=== PATIENT | female | born 1975 | race Caucasian/White ===

== ENCOUNTER 2016-10-17 10:57 | Emergency (ER) | payer SELFPAY | END 2016-10-17 12:13 | disposition home or self-care (01) | LOC: D.ER 10:57 | DX: M54.10 Radiculopathy, site unspecified (principal); M54.5 Low back pain; M51.36 Other intervertebral disc degeneration, lumbar region; F32.9 Major depressive disorder, single episode, unspecified; M79.7 Fibromyalgia ==

== ENCOUNTER 2017-08-20 18:59 | Emergency (ER) | payer MEDICAID | END 2017-08-20 21:45 | disposition home or self-care (01) | LOC: D.ER 18:59 | DX: L03.317 Cellulitis of buttock (principal); Z20.89 Contact with and (suspected) exposure to other communicable diseases; F17.200 Nicotine dependence, unspecified, uncomplicated ==

== ENCOUNTER 2017-10-14 12:45 | Observation (INO) | payer MEDICAID ==
[~2017-10-14] VITALS: Ht 165.1 cm; Wt 48.0 kg
--- NOTE | ~2017-10-14 | HEMODYNAMI ---
PATIENT:SOHAIL TRIMBLE MEDICAL RECORD: [id number] : 73 [id number] ADMISSION DATE: 10/14/17 Generatedon:10/15/201716:05 Patient name: SOHAIL TRIMBLE Patient #: [id number] SSN: : 1975 Date of study: 10/15/2017 Page: Of Hemodynamic Procedure Report Patient Data Patient Demographics Procedure consent was obtained First Name: SOHAIL Gender: Female Last Name: ATILIO : 1975 Middle Initial: M Age: 42 year(s) Patient #: [id number] Race: Unknown Additional ID: [id number] Contact details Address: [address] [place] [address] State: [place] City: [place] Zip code: [address] Past Medical History Allergies Allergen Reaction Date Comments Reported Other allergy 10/15/2017 Bigg CABRERA Admission Admission Data Admission Date: 10/14/2017 Admission Time: 18:59 Room #: D.2120 Height (in.): 64.96 BSA: 1.5 (m2) Height (cm.): 165 BMI: 17.26 (kg/m2) Weight (lbs.): 103.62 Weight (kg.): 47 Lab Results Lab Result Date: 10/15/2017 Lab Result Time: 0:00 Biochemistry Name Units Result Min Max BUN mg/dl 7 --(*---)-- 7 18 Creatinine mg/dl 0.9 --(-*--)-- 0.6 1.3 CBC Name Units Result Min Max Hemoglobin g/dl 13.8 --(*---)-- 13.5 17.5 Procedure Procedure Types Cath Procedure Diagnostic Procedure [facility] w/Coronaries Sedation Charges Moderate Sedation up to 15 minutes Procedure Description Procedure Date Procedure Date: 10/15/2017 Procedure Start Time: 15:45 Procedure End Time: 16:03 Procedure Staff Name Function Praful Deluna MD Performing Physician Jabari Feliciano RN Nurse Berkley Jeter RT Scrub [facility] RT Monitor Procedure Data Cath Procedure Fluoroscopy Diagnostic fluoroscopy Total fluoroscopy Time: 2.2 time: 2.2 min min Diagnostic fluoroscopy Total fluoroscopy dose: 431 dose: 431 mGy mGy Contrast Material Contrast Material Type Amount (ml) Isovue 300 51 Entry Location Entry Primary Successful Side Size Upsize Upsize Entry Closure Solorzano ccessful Closure Location (Fr) 1 (Fr) 2 (Fr) Remarks Device Remarks Radial Right 6 Fr Manual artery Short Compression Estimated blood loss: 5 ml Diagnostic catheters Device Type Used For End Catheter Placement DIAGNOSTIC [place] 110cm 5 Procedure Fr catheter ([id number]) Procedure Complications No complications Procedure Medications Medication Administration Route Dosage Oxygen etCO2 Nasal cannula 2 l/min Heparin Flush Bag added to field 2 bags (1000units/500ml NS) 0.9% NaCl I.V. 100 ml/hr Radial Cocktail added to field 1 syringe (Verapomil 2mg/Nitro 400mcg/Heparin 1500units) Fentanyl I.V. 50 mcg Versed I.V. 1 mg Fentanyl I.V. 50 mcg Versed I.V. 1 mg Radial Cocktail I.A. 1 syringe (Verapomil 2mg/Nitro 400mcg/Heparin 1500units) Fentanyl I.V. 50 mcg Versed I.V. 1 mg Fentanyl I.V. 50 mcg Nitroglycerin IC/IA I.A. 200 mcg Versed I.V. 1 mg Hemodynamics Rest BSA: 1.5 (m2) HGB: 13.8 (g/dl) O2 Consumption: Estimated: 164.28 (ml/min) O2 Con sumption indexed: Estimated:109.52 (ml/min/m) Heart Rate: 94 (bpm) Pressure Samples Time Site Value (mmHg) Purpose Heart Use Rate(bpm) 15:51 LV 113/10,17 EDP 92 Gradients Valve Time Site Site Mean SEP/DFP Peak To Heart Use 1 2 (mmHg) (sec/min) Peak Rate (mmHg) (bpm) Aortic 15:52 LV AO 90 Snapshots Pre Cath Intra NCS Post Cath Vital Signs Time Heart Resp SPO2 etCO2 NIBP Rhythm Pain Sedation Rate (ipm) (%) (mmHg) (mmHg) Status Level (bpm) 15:33:46 91 17 91 0 117/71(97) NSR 0 (11) 10(A) , No pain 15:38:06 85 16 98 26.7 117/69(90) NSR 0 (11) 10(A) , No pain 15:42:28 87 16 97 30.4 105/64(83) NSR 0 (11) 10(A) , No pain 15:46:52 85 16 99 23.7 121/73(94) NSR 0 (11) 9(A) , No pain 15:51:17 90 16 95 31.9 120/61(84) NSR 0 (11) 9(A) , No pain 15:55:39 92 14 92 35.6 112/61(84) NSR 0 (11) 9(A) , No pain 16:00:40 86 14 96 36.4 117/69(89) NSR 0 (11) 9(A) , No pain Medications Time Medication Route Dose Verified Delivered Reason Notes Effectiveness by by 15:34:26 Oxygen etCO2 2 l/min Praful Jabari Per Nasal Regi Feliciano RN physician cannula 15:34:34 Heparin Flush added 2 bags Praful Jabari used for Bag to Regi Feliciano RN procedure (1000units/500ml field HUERTAS NS) 15:34:42 0.9% NaCl I.V. 100 Praful Jabari Per ml/hr Regi Feliciano RN physician 15:34:52 Radial Cocktail added 1 Praful Jabari used for (Verapomil to syringe Regi Feliciano RN procedure 2mg/Pedrito holder MD 400mcg/Heparin 1500units) 15:38:55 Fentanyl I.V. 50 mcg Praful Jabari for sedation Regi Feliciano RN, MD 15:39:02 Versed I.V. 1 mg Praful Jabari for sedation Regi Feliciano RN, MD 15:43:17 Fentanyl I.V. 50 mcg Praful Jabari for sedation Regi Feliciano RN, MD 15:43:20 Versed I.V. 1 mg Praful Jabari for sedation Regi Feliciano RN, MD 15:46:37 Radial Cocktail I.A. 1 Praful Praful for (Verapomil syringe Regi Deluna MD vasodilation 2mg/Pedrito HUERTAS 400mcg/Heparin 1500units) 15:46:43 Fentanyl I.V. 50 mcg Praful Jabari for sedation Regi Feliciano RN, MD 15:50:55 Versed I.V. 1 mg Praful Jabari for sedation Regi Feliciano RN, MD 15:53:45 Fentanyl I.V. 50 mcg Praful Jabari for sedation Regi Feliciano RN, MD 16:01:09 Nitroglycerin I.A. 200 mcg Praful Praful for IC/IA Regi goodwin MD 16:01:16 Versed I.V. 1 mg Praful Barboza for sedation Regi Feliciano RN, MD Procedure Log Time Note 15:10:18 Jabari Feliciano RN sent for patient. Start room use. 15:24:29 Patient Height : 64.96 inches 15:24:34 Patient Weight : 103.62 lbs 15::30 Lab Result : BUN 7 mg/dl 15::30 Lab Result : Creatinine 0.9 mg/dl 15::30 Lab Result : Hemoglobin 13.8 g/dl 15:26:15 Diagnostic Cath status Elective 15::28 Time tracking: Regular hours 15:26:36 Plan of Care:Hemodynamics will remain stable., Cardiac rhythm will remain stable., Comfort level will be maintained., Respiratory function will remain adequate., Patient/ family verbilizes understanding of procedure., Procedure tolerated without complication., Recovers from procedure without complications.. 15:26:50 Patient received from Med II to CCL 1 Alert and oriented. Tansferred to table in Supine position. 15:27:00 Warm blankets applied, and lisa hugger turned on for patient comfort. 15:27:01 Correct patient and procedure confirmed by team. 15:27:03 Signed procedure consent form obtained from patient. 15:27:04 ECG and BP/O2 sat monitors applied to patient. 15:27:11 Pre-procedure instructions explained to patient. 15:27:15 Family in patients room. 15:27:18 Patient NPO since Midnight. 15:27:41 Patient allergic to Other allergyPCN, Codeine 15:27:47 Is the patient allergic to Iodine/contrast media? No. 15:27:50 Was the patient premedicated? Yes 15:30:03 Is patient on blood thinner?Yes 15:30:09 ACC The patient was administered the following blood thiners within the last 24 hours: ACCPlavix 15:30:13 Patient diabetic? No. 15:30:16 ----Pre-sedation anethsthesia assessment.---- 15:30:22 Previous problem with sedation/anesthesia? No ? 15:30:26 Snore? Yes 15:30:35 Sleep apnea? No 15:30:45 Deviated septum? No 15:30:47 Opens mouth fully? Yes 15:30:49 Sticks out tongue? Yes 15:31:01 Airway obstruction? No ? 15:31:13 Dentures? Yes OUT 15:32:22 Modified Dylan's test Radial < 7 seconds 15:32:26 Patient pain scale 0/10 ?. 15:32:44 IV patent on arrival in left forearm with 0.9% NaCl at [facility]. 15:33:02 Lab results completed and on chart. 15:33:15 Vital chart was started 15:33:16 Baseline sample Acquired. 15:33:20 Rhythm: sinus rhythm 15:33:22 Full Disclosure recording started 15:34:20 H&P Date Dictated: 10/14/2017 Within 30 days and on chart.. 15:34:26 Oxygen 2 l/min etCO2 Nasal cannula was administered by Jabari Feliciano RN; Per physician; 15:34:34 Heparin Flush Bag (1000units/500ml NS) 2 bags added to field was administered by Jabari Feliciano RN; used for procedure; 15:34:39 Right Radial & Right Groin area was prepped with chlora-prep and draped in sterile fashion 15:34:40 Alarms reviewed by R. N. 15:34:41 Sharps counted by scrub and verified by R.N. 15:34:42 0.9% NaCl 100 ml/hr I.V. was administered by Jabari Feliciano RN; Per physician; 15:34:52 Radial Cocktail (Verapomil 2mg/Nitro 400mcg/Heparin 1500units) 1 syringe added to field was administered by Jabari Feliciano RN; used for procedure; 15:36:27 --------ALL STOP TIME OUT------ 15:36:28 Final Timeout: patient, procedure, and site verified with staff and physician. All members of the team are in agreement. 15:36:29 Right Radial & Right Groin site verified by team. 15:36:32 Physical assessment completed. ASA score P 2 - A patient with mild systemic disease as per Praful Deluna MD. 15:36:36 Sedation plan: IV Moderate Sedation Medication:Versed, Fentanyl 15:38:38 Use device set Radial Dx or PCI 15:38:39 ACIST Syringe (80508) opened to sterile field. 15:38:41 ACIST Hand Control (46382) opened to sterile field. 15:38:41 ACIST Manifold (37252) opened to sterile field. 15:38:42 Tegaderm 4 x 4 (1626W) opened to sterile field. 15:38:48 Bag Decanter (2002S) opened to sterile field. 15:38:49 Medline Cath Pack ([id number]) opened to sterile field. 15:38:49 SHEATH 6FR Slender ([id number]) opened to sterile field. 15:38:50 DIAGNOSTIC WIRE .035 260cm J wire (685530) opened to sterile field. 15:38:52 MBrace Wrist Support ([id number]) opened to sterile field. 15:38:55 Fentanyl 50 mcg I.V. was administered by Jabari Feliciano RN; for sedation; 15:39:02 Versed 1 mg I.V. was administered by Jabari Feliciano RN; for sedation; 15:41:01 Zero performed for pressure channel P1 15:41:12 Zero performed for pressure channel P1 15:42:58 Procedure started. 15:43:17 Fentanyl 50 mcg I.V. was administered by Jabari Feliciano RN; for sedation; 15:43:20 Versed 1 mg I.V. was administered by Jabari Feliciano RN; for sedation; 15:45:08 Local anesthetic to right radial artery with Lidocaine 2% by Praful Deluna MD.INITIAL ACCESS ONLY 15:46:37 Radial Cocktail (Verapomil 2mg/Nitro 400mcg/Heparin 1500units) 1 syringe I.A. was administered by Praful Deluna MD; for vasodilation; 15:46:43 Fentanyl 50 mcg I.V. was administered by Jabari Feliciano RN; for sedation; 15:48:44 A 6 Fr Short sheath was inserted into the Right Radial artery 15:49:52 A DIAGNOSTIC [place] 110cm 5 Fr catheter ([id number]) was advanced over the wire and used for Procedure. 15:50:55 Versed 1 mg I.V. was administered by Jabari Feliciano RN; for sedation; 15::51 Injector settings: Ml/sec: 12, Volume: 8, 15::57 LV hemodynamics recorded. 15:51:58 LV gram done using ANN 15:52:23 EF : 65 % 15:52:43 RCA angiography performed. 15:53:45 Fentanyl 50 mcg I.V. was administered by Jabari Feliciano RN; for sedation; 15:54:02 LCA angiography performed. 15:57:01 Catheter removed. 15:57:06 TR BAND Standard ([id number]) opened to sterile field. 15:57:28 Procedure ended.(Physican Out) 15:57:54 Sheath removed intact; hemostasis achieved with Manual Compression to the Right Radial artery. 15:58:15 Fluoroscopy time 02.20 minutes. 15:58:19 Fluoroscopy dose: 431 mGy 15:58:19 Flurop Dose total: 431 15:58:22 Contrast amount:Isovue 300 51ml. 15:58:23 Sharps counted by scrub and verified by R.N. 16:01:09 Nitroglycerin IC/IA 200 mcg I.A. was administered by Praful Deluna MD; for vasodilation; 16:01:16 Versed 1 mg I.V. was administered by Jabari Feliciano RN; for sedation; 16:01:42 Post-procedure physical assessment completed. ASA score P 2 - A patient with mild systemic disease as per Praful Deluna MD. 16:01:44 Post procedure rhythm: unchanged. 16:01:46 Estimated blood loss: 5 ml 16:01:48 Post procedure instruction explained to patient.Patient verbalizes understanding. 16:01:49 Patient needs reinforcement of post procedure teaching. 16:02:20 Procedure type changed to Cath procedure, Diagnostic procedure, LHC, LHC w/Coronaries, Sedation Charges, Moderate Sedation up to 15 minutes 16:02:26 TR band inflated with 13cc of air. 16:03:29 Procedure and supply charges have been captured, reviewed, submitted and are correct. 16:03:32 Procedure Complication : No complications 16:03:34 Vital chart was stopped 16:03:35 See physician's report for complete and final results. 16:03:41 Report given to PCU. 16:03:44 Patient transfered to PCU with Bed. 16:03:45 Procedure ended. 16:03:45 Full Disclosure recording stopped 16:03:53 End room use (Document Last) Device Usage Item Name Manufacture Quantity Catalog Hospital Part Current Minima l Lot# / Number Charge Number Stock Stock Serial# Code ACIST Acist 1 97165 599321 [id number] [id number] 20 Syringe Medical (14475) Systems Inc ACIST Hand Acist 1 75889 874976 317924 261519 5 Control Medical (75150) Systems Inc ACIST Acist 1 22368 603402 853891 323271 5 Manifold Medical (68045) Systems Inc Tegaderm 4 x 3M 1 1626W 496550 734583 029680 5 4 (1626W) Bag Decanter Microtek 1 2002S 767008 86194 149144 5 (2002S) Medical Inc. Medline Cath Cardinal 1 [id number] 490023 34435 098506 5 [employer] ([id number]) SHEATH 6FR Terumo 1 [id number] 810527 503249 468183 40 Slender ([id number]) DIAGNOSTIC St Miles 1 720654 147327 463601 508459 30 WIRE .035 260cm J wire (032702) MBrace Wrist Advanced 1 140-0250-00 202431 20844 567061 5 Support Vascular ([id number]) Dynamics DIAGNOSTIC Terumo 1 40-3763 276326 598047 996442 5 [place] 110cm 5 Fr catheter (634796) TR BAND Terumo 1 [id number] 075696 403192 619632 40 Standard ([id number]) Signature Audit [place] Stage Time Signature Unsigned Intra-Procedure 10/15/2017 Cherri Franco 4:05:08 PM RT(R) Signatures Monitor : Cherri Franco Signature : RT Date : Time : [place] [address] [facility] [place] [address]
[2017-10-14 13:36] LABS: BASOPHILS 0.3 % (0-2); EOSINOPHILS 1.3 % (0-7); HEMOGLOBIN 13.8 g/dL (12-16); IMMATURE GRANULOCYTES 0.2 % (0-5); LYMPHOCYTES 40.2 % (15-50); MCH 29.9 pg (26.0-34.0); MCHC 33.7 g/dL (31.0-37.0); MCV 88.9 fL (80.0-100.0); MEAN PLATELET VOLUME 10.5 fL (7.4-10.4); MONOCYTES 9.2 % (2-11); NEUTROPHILS 48.8 % (40-80); PLATELET COUNT 246 10x3/uL (130-400); RBC 4.61 10x6/uL (4.00-5.40); RDW 12.7 % (11.5-14.5); WBC 6.2 10x3/uL (4.8-10.8)
[2017-10-14 13:48] LABS: ALBUMIN 3.3 g/dL (3.4-5.0); ALKALINE PHOSPHATASE 62 U/L (46-116); ALT (SGPT) 13 U/L (10-68); BILIRUBIN - TOTAL 0.24 mg/dL (0.2-1.3); CALC OSMOLALITY 276 mosm/kg (275-300); CALCIUM 8.6 mg/dL (8.5-10.1); CARBON DIOXIDE 26.2 mmol/L (21.0-32.0); CHLORIDE - SERUM 106 mmol/L (98-107); CREATININE - SERUM 0.9 mg/dL (0.6-1.3); GLUCOSE 91 mg/dL (74-106); POTASSIUM - SERUM 3.9 mmol/L (3.5-5.1); PROTEIN - SERUM 7.8 g/dL (6.4-8.2); SODIUM 140 mmol/L (136-145); UREA NITROGEN 7 mg/dL (7-18); eGFR NON AFRICAN AMERICAN 72 mL/min (90-120)
[2017-10-14 14:00] LABS: CKMB 0.7 U/L (0.0-3.6); CREATINE KINASE 66 UL (21-215)
[2017-10-14 14:01] LABS: TROPONIN-I < 0.017 ng/mL (0.000-0.060)
[2017-10-15 00:24] VITALS: BP 148/80; Ht 165.1 cm; Wt 48.0 kg
[2017-10-15 04:00] VITALS: BP 126/76
[2017-10-15 07:55] LABS: BASOPHILS 0.3 % (0-2); EOSINOPHILS 3.3 % (0-7); HEMATOCRIT 39.4 % (36.0-48.0); HEMOGLOBIN 13.4 g/dL (12-16); IMMATURE GRANULOCYTES 0.1 % (0-5); LYMPHOCYTES 49.7 % (15-50); MCH 29.9 pg (26.0-34.0); MCV 87.9 fL (80.0-100.0); MEAN PLATELET VOLUME 9.9 fL (7.4-10.4); MONOCYTES 8.5 % (2-11); NEUTROPHILS 38.1 % (40-80); PLATELET COUNT 234 10x3/uL (130-400); RBC 4.48 10x6/uL (4.00-5.40); RDW 12.6 % (11.5-14.5); WBC 7.4 10x3/uL (4.8-10.8)
[2017-10-15 08:50] LABS: CALC OSMOLALITY 275 mosm/kg (275-300); CALCIUM 8.1 mg/dL (8.5-10.1); CARBON DIOXIDE 25.6 mmol/L (21.0-32.0); CHLORIDE - SERUM 106 mmol/L (98-107); CHOL - HDL RATIO 4.2 ratio (2.3-4.1); CHOLESTEROL, TOTAL 159 mg/dL (0-200); CREATININE - SERUM 0.8 mg/dL (0.6-1.3); GLUCOSE 89 mg/dL (74-106); HDL CHOLESTEROL 38 mg/dL (32-96); LDL CHOLESTEROL 97 mg/dL (0-100); LDL-HDL RATIO 2.6 ratio (1.5-3.5); POTASSIUM - SERUM 3.7 mmol/L (3.5-5.1); SODIUM 140 mmol/L (136-145); TRIGLYCERIDE 122 mg/dL (30-200); UREA NITROGEN 7 mg/dL (7-18); eGFR NON AFRICAN AMERICAN 83 mL/min (90-120)
[2017-10-15 09:07] VITALS: BP 133/81
[2017-10-15 12:15] VITALS: BP 140/70
[2017-10-15 16:34] VITALS: BP 95/64
[2017-10-15 21:30] VITALS: BP 127/78
[2017-10-16 01:12] VITALS: BP 115/70
[2017-10-16 05:21] VITALS: BP 110/64
[2017-10-16 10:58] VITALS: BP 132/77
== END 2017-10-16 12:35 | disposition home or self-care (01) ==
LOC: D.ER 12:45 → D.EDHOLD 18:59 → D.M2 18:59 → OBSVTIME 19:00 → D.M2 20:18
PROVIDERS: Emergency Medicine; Internal Medicine Cardiovascular Disease
DX: F41.8 Other specified anxiety disorders (principal); R07.89 Other chest pain; I25.10 Atherosclerotic heart disease of native coronary artery without angina pectoris